=== PATIENT | female | born 1990 | race Caucasian/White ===

== ENCOUNTER 2021-08-17 07:46 | Outpatient (CLI) | payer BC, SELFPAY | END 2021-08-17 07:47 | disposition home or self-care (01) | LOC: ANHSURGERY 07:51 | PROVIDERS: PCP Internal Medicine Gastroenterology; Visit Provider Obstetrics & Gynecology | DX: R58 Hemorrhage, not elsewhere classified (principal) | CPT/HCPCS: 36415; 86850; 86900; 86901 ==

== ENCOUNTER 2021-08-19 00:38 | Day surgery (SDC) | payer BC, SELFPAY ==
[2021-08-12 09:23] VITALS: BMI 24.9
--- NOTE | 2021-08-12 09:31 | PC.NURSE ---
Report to the Outpatient Waiting Room, entrance under the green pavilion located off [facility], at time 6:00 on date 08/19/21. OR Time: 7:30. - You will be asked a series of questions to screen for COVID 19 for your protection. - A mask is required within the hospital. - No visitors are allowed at this time. Preoperative COVID Testing Requirements: No COVID Test needed if: (proof is required; if not received patient will have Rapid Test prior to entry) - Patient has received COVID Vaccine at least 14 days prior to procedure date or - Patient has positive COVID test result within last 90 days of surgery date. COVID Test needed if above criteria is not met Patients may have clear liquids (water, carbonated beverages, clear teas, apple juice) until 3 hours prior to surgery (4:30) with a maximum of 20 ounces. - No food from midnight until time of surgery Take the following medications with a SIP of water the morning of surgery: NONE Medications to discontinue per physician: N/A Date to take last dose: N/A Please no make-up, nail syriac, hairspray, perfume, deodorant, or body powder the day of surgery. No jewelry (including any body piercings) or valuables the day of surgery, leave them at home. Please take a shower or bath the night before, or the morning of, surgery with an antibacterial soap. Wear comfortable, loose fitting clothing. - Jewelry must be removed prior to entering the operating room. Rings and piercings that are not removed may be cut off. - The hospital will not accept responsibility for valuables. - Please leave all valuables, including medications, at home the day of surgery. If you are going home after surgery, a licensed dump truck driver off highway must drive you home. - NO public transportation without another adult. - We recommend that an adult stay with you for 24 hours following discharge. - We also recommend that you do not drive, make important decision, drink alcoholic beverages, or take any drugs that were not prescribed by your health care provider for at least 24 hours after your discharge time. Follow any additional instructions given to you from your surgeon. Telephone instructions given to ARACELIS BARRY and asked if any additional questions and then verbalized understanding. Patient advised to call surgeon office or pre surgery nurse liaison [phone] if any additional questions.
[2021-08-19] VITALS (8 sets, daily range): BP systolic 94–124; BP diastolic 59–83; PULSE 66–93; RESP 13–16; TEMP 36.5–37; O2SAT 98–100
[2021-08-19] MEDS: ACETAMINOPHEN 500 MG TABLET 1000 MG PO (06:09)
[2021-08-19] MEDS: LACTATED RINGERS 1,000 ML 30 ML IV CONT ×2 (06:32→09:09)
[2021-08-19] MEDS: KETOROLAC 15 MG/ML VIAL (*BKC) IV PUSH (06:34)
--- NOTE | 2021-08-19 06:49 | P.PNAN_ITS ---
Anes - Initial Pre Proc Eval Procedure: Operation Date: 08/19/21 07:30 Proposed Procedures p Total Laparoscopic Hysterectomy with Bilateral Salpingo-Oophorectomy - Naomi Gipson MD Date/Time: 08/19/21 06:49 Surgeon: Naomi Gipson MD Pre Op Diagnosis: excessive bleeding Patient Data Age: 30 Gender: F Height: 1.65 m Weight: 74.4 kg Last Vital Signs Temp 37.0 C 08/19/21 06:38 Pulse 93 08/19/21 06:38 Resp 16 08/19/21 06:38 BP 111/78 08/19/21 06:38 Pulse Ox 98 08/19/21 06:38 Allergies Allergy/AdvReac Type Severity Reaction Status Date / Time Penicillins Allergy Severe Anaphylaxis Verified 08/19/21 06:04 Home Medications Medication Instructions Recorded Confirmed Type No Home Medications 08/12/21 08/19/21 History Patient hx anesthesia problems: none Family hx anesthesia problems: none Results Review: All pre-operative results and documents have been reviewed as part of the pre-operative evaluation. [facility] Past Medical History Medical History (Updated 08/18/21 @ 12:48 by Alan Davison DO) Anxiety Depression TIA (transient ischemic attack) 2019 Surgical History Surgical History (Updated 08/18/21 @ 12:48 by Alan Davison DO) H/O tubal ligation History of Social History Social History Years smoked: 6 Smoking status: Former smoker Tobacco type: cigarettes Smoking end date: 07/11/16 Alcohol intake: never Substance use: never Substance use type: does not use Living arrangements: alone Spiritual care concerns: No Anes - Eval Final PreProcedure Day of Procedure 08/19/21 06:49 Patient weight: overweight Heart: regular rate and rhythm Lungs: clear to auscultation and normal air movement Airway: Mallampati scale class II Neurological: alert and oriented Last oral intake: >/= 8 hours ASA classification: III Emergent: no Anesthetic plan: proceed Anesthesia type and monitoring: general ETT and standard monitoring Results Review: All pre-operative results and documents have been reviewed as part of the pre-operative evaluation. Informed Consent: The patient's anesthetic plan and its attendant risks and benefits were discussed with the patient/family/POA. Questions were solicited and answers provided to the satisfaction of the patient/family/POA.
--- NOTE | 2021-08-19 07:18 | WPDHPUPDATE1 ---
History and Physical Update Update Date/Time: 08/19/21 07:18 History and Physical has been reviewed, including an updated exam of the patient. There are NO changes in the patient's condition. Risks, benefits, and alternatives have been discussed and questions answered. Patient agrees to proceed with procedure.
[2021-08-19] MEDS: ceFAZolin 2 GM/D5W 50 ML 2 GM/50 ML BAG IVPB (07:28)
[2021-08-19] MEDS: fentaNYL CITRATE INJ (*CRX) 100 MCG/2 ML VIAL 25 MCG IV PUSH ×4 (09:25→09:57)
--- NOTE | 2021-08-19 09:31 | W.PM.PROC2 ---
Procedure Note - Detailed Date of Procedure 08/19/21 Pre-op Diagnosis Menorrhagia, Post-op Diagnosis same Procedure Performed Total laparoscopic hysterectomy and bilateral salpingo-oophorectomy. Surgeon Naomi Gipson MD Anesthesia general Indications Severe menometrorrhagia, family history of ovarian cancer Findings Moderate sized uterus, normal appearing ovaries and normal-appearing tubes. Description of Procedure This patient was taken to the operating room. She was prepped and draped in the dorsal lithotomy position after induction of general anesthesia. The uterine manipulator and Slick cup were placed. This was done with a speculum and tenaculum. The speculum was placed. The cervix was grasped with a tenaculum. The stay sutures were placed at 3 and 9:00 a.m.. The stay sutures of 0 Vicryl were brought through the appropriately sized Slick cup. The tip of the MEREDITH manipulator was placed in the intrauterine cavity. The cup was slid into place around the cervix and into the fornices. It was locked into place. The sutures were then wrapped around the handle and tied under tension. A 5 mm skin incision was made in the left upper quadrant the abdomen. A 5 mm trocar was inserted into the intrauterine cavity under direct visualization of the scope. Pneumoperitoneum was achieved. A left lower quadrant 11 mm incision was made with scalpel. An 11 mm trocar was inserted into the anterior abdominal cavity under direct visualization the scope. A 5 mm infraumbilical incision was made with a scalpel and a 5 mm trocar was inserted the intra-abdominal cavity under direct visualization of the scope. Bilateral ureteral lysis was performed. This was done from the pelvic brim down to the uterine artery. This was done with careful dissection using sharp and blunt dissection. The infundibulopelvic ligaments were isolated after identification of the ureters bilaterally. These infundibulopelvic ligaments were cauterized and transected with LigaSure cautery. The para ovarian tissue was cauterized and transected with LigaSure cautery bilaterally. Moving around the ovary into the broad ligament the tissue was cauterized transected with LigaSure cautery. The round ligaments were cauterized transected with LigaSure cautery this was all done in a bilateral fashion. In a stepwise fashion along the lateral aspects of the uterus the round ligament and broad ligaments were cauterized transected down to the level of the uterine arteries. A bladder flap was created in the bladder was moved distally to the end of the cervix and over the Slick cup. The bilateral uterine arteries were cauterized and transected. Colpotomy was then performed. In a circumferential fashion the vagina was transected using unipolar cautery. The incision was made down on the Slick cup. The uterus, cervix, fallopian tubes and ovaries were taken out through the vagina. A pneumo occluder was placed in the vagina. The vaginal cuff was closed with a 0 V lock suture in a running fashion. The pelvis was irrigated with copious amounts antibiotic irrigation. The ureters were again examined and found to be intact and flowing freely under the uterine arteries into the bladder. The bladder was intact. It was examined directly. The vagina was irrigated with Betadine solution after removal of the Pneumo occluder. The patient was taken to recovery room. She was stable condition. Sponge lap and needle counts were correct x2. Estimated Blood Loss 100 Drains Yes Packing No Pathology yes Complications No immediate complications Condition stable Disposition floor
[2021-08-19] MEDS: DEXTROSE 5%/0.45% SOD CHL 1,000 ML 125 ML IV CONT (10:31)
[2021-08-19] MEDS: HYDROcodone/acetaminophen (*CRX) 10-325 MG TABLET 1 TAB PO (10:38)
[2021-08-19] MEDS: ONDANSETRON INJ 4 MG/2 ML VIAL IV PUSH (10:42)
[2021-08-19] MEDS: HYDROcodone/acetaminophen (*CRX) 5-325 MG TABLET 1 TAB PO (16:43)
== END 2021-08-19 18:40 | disposition home or self-care (01) ==
LOC: ANHSURGERY 06:31 → ANHOB2 10:12
PROVIDERS: PCP Internal Medicine Gastroenterology; Visit Provider Obstetrics & Gynecology
PROC: 0UT9FZZ Resection of Uterus, Via Natural or Artificial Opening With Percutaneous Endoscopic Assistance (ICD-10-PCS; CPT 58571; principal; 2021-08-19 07:30)
DX: N92.1 Excessive and frequent menstruation with irregular cycle (principal); N80.0 Endometriosis of uterus; N94.89 Other specified conditions associated with female genital organs and menstrual cycle; N83.02 Follicular cyst of left ovary; N83.01 Follicular cyst of right ovary; N73.6 Female pelvic peritoneal adhesions (postinfective); Z80.41 Family history of malignant neoplasm of ovary; Z86.73 Personal history of transient ischemic attack (TIA), and cerebral infarction without residual deficits; Z87.891 Personal history of nicotine dependence
CPT/HCPCS: 58571; 88307; 99199; A9270; J0690; J1100; J1885; J2250; J2405; J2704; J2710; J3010; J7030; J7120

== ENCOUNTER 2021-12-28 13:35 | Emergency (ER) | payer BC, SELFPAY ==
--- NOTE | ~2021-12-28 | XR_ITS ---
EXAMINATION: XR ankle LT min 3V DATE: 12/28/2021 13:56 INDICATION: Anterior and lateral left ankle pain post fall TECHNIQUE: Anteroposterior, oblique, mortise, and lateral views of the left ankle were obtained. COMPARISON: None. FINDINGS: Soft tissue swelling along the anterior and lateral left ankle. Bone alignment is normal. No fracture . Joint spaces are normal. No ankle joint effusion. IMPRESSION: 1. No osseous abnormality. Reviewed, dictated and finalized at location B. IMPRESSION: 1. No osseous abnormality.
--- NOTE | 2021-12-28 13:38 | ED.LOWEXIN ---
HPI - Extremity Injury (Lower) General Stated Complaint: left ankle injury Time Seen by Provider: 12/28/21 13:37 Source: patient Mode of arrival: ambulatory Limitations: no limitations History of Present Illness HPI Narrative: Ms. Perez is a 31-year-old female patient presenting to the clinic today with complaints of left ankle pain/injury. She reports that she was standing on the side of the bathtub putting up a shower curtain and fell off and injured her ankle. She is using crutches as she cannot bear weight Related Data Home Medications Medication Instructions Recorded Confirmed No Home Medications 08/12/21 08/19/21 Allergies Allergy/AdvReac Type Severity Reaction Status Date / Time Penicillins Allergy Severe Anaphylaxis Verified 12/28/21 13:43 Review of Systems Review of Systems: Pertinent positives per HPI. Patient denies any fever, chills, rash, headache, visual changes, dizziness, cough, runny nose, sore throat, shortness of breath, chest pain, palpitations, nausea, vomiting, diarrhea, constipation, abdominal pain, or any urinary issues. PMFSH Past Medical History Medical History Anxiety Depression TIA (transient ischemic attack) 2020 Surgical History Surgical History H/O tubal ligation History of Social History Social History Years smoked: 6 Smoking status: Former smoker Tobacco type: cigarettes Smoking end date: 07/11/16 Alcohol intake: never Substance use: never Substance use type: does not use Spiritual care concerns: No Comments At the time of my signature, I reviewed and agree with the nursing past medical, surgical, social, and family history. There is no relevant family history pertinent to the patient complaint. Exam Narrative: General: Well-developed, well nourished, in no apparent distress Head: Normocephalic, atraumatic. Cardio: Regular rate and rhythm, s1 and s2 normal, no murmur appreciated. Resp: Clear to auscultation bilaterally, no rhonchi, rales, wheezing or rubs. Musculoskeletal: No deformity, moderate amount of swelling and bruising to the lateral and medial left ankle, unable to perform any range of motion to the ankle due to the pain, pain with attempted flexion and extension against resistance, tender to palpation over the lateral and medial ankle, peripheral pulse strong, no cyanosis, using crutches to walk Course Course Emergency Course: Portions of this record may have been created with voice recognition software. Level of Care: Express Care Visit Vital Signs Vital signs: Vital signs reviewed MDM - Extremity Injury (Lower) MDM Narrative Medical decision making narrative: At the time of visit patient was resting comfortably on the exam table. X-ray was performed and was negative for any fracture or malalignment of the left ankle. I suspect the patient has a severe ankle sprain. Ice pack given and an Jose L wrap applied. Discussed using an ankle stirrup brace when attempting to bear weight. Supportive measures were discussed with the patient she voiced understanding of treatment plan Imaging Data My impression: Negative for fracture or malalignment of the left ankle Radiologist's impression: Express [address] [address] XRay Report Signed Patient: Roxanna Perez : 1990 MR#: [id number] Age/Sex: 31 / F Acct:[id number] Loc: [facility]? ? ADM Date: 12/28/21Attending Dr: Ordering Physician: Hernan Caraballo APRN Date of Service: 12/28/21 Procedure(s): XR ankle LT min 3V Accession Number(s): [id number] cc: Hernan Caraballo APRN; Rafael, Adi Trevizo MD~ EXAMINATION: XR ankle LT min 3V DATE: 12/28/2021 13:56 INDICATION:
[2021-12-28 13:41] VITALS: BP 131/92; PULSE 99; RESP 16; TEMP 36.7; O2SAT 100
[2021-12-28 13:44] VITALS: BP 131/92; PULSE 99; RESP 16; TEMP 36.7; O2SAT 100
== END 2021-12-28 14:06 | disposition home or self-care (01) ==
PROVIDERS: Emergency Provider Nurse Practitioner Family; PCP Internal Medicine Gastroenterology
DX: S93.402A Sprain of unspecified ligament of left ankle, initial encounter (principal); W17.89XA Other fall from one level to another, initial encounter; Z86.73 Personal history of transient ischemic attack (TIA), and cerebral infarction without residual deficits
CPT/HCPCS: 73610; 99213; G0463